=== PATIENT | female | born 1945 | race African-American/Black ===

== ENCOUNTER 2017-02-18 17:16 | Emergency (ER) | payer OTHER ==
[~2017-02-18] VITALS: Ht 160 cm; Wt 81.6 kg
[2017-02-18 18:28] VITALS: BP 134/63
[2017-02-18] MEDS ORDERED: HYDR-971 PO (18:41)
--- NOTE | 2017-02-18 18:41 | PHYS DOC ---
Past Medical History Past Medical History: Hypertension, Other Additional Past Medical Histor: RA Past Surgical History: Other Additional Past Surgical Histo: R. ARM Alcohol Use: Occasionally Drug Use: None Adult General Chief Complaint Chief Complaint: BACK PAIN - NO INJURY [facility] HPI 71-year-old female with no history of chronic back pain now presents to the emergency department complaining of left upper back pain since awakening this morning. Patient has severe tenderness just medial to her left scapula. She says it's tight and hurts with any movement or touch. Patient denies spinal pain and she did not have any fall or trauma recently. Normal bowel bladder habits. Pain is not in her low back. She has normal strength sensation and use of both legs with no incontinence or numbness. Normal gait without difficulty. Patient has no chest pain or shortness of breath. The pain is worse with twisting and moving. No other complaints. Denies productive cough or fever Review of Systems Review of Systems Constitutional: Denies fever or chills [] Eyes: Denies change in visual acuity, redness, or eye pain [] HENT: Denies nasal congestion or sore throat [] Respiratory: Denies cough or shortness of breath [] Cardiovascular: No additional information not addressed in HPI [] GI: Denies abdominal pain, nausea, vomiting, bloody stools or diarrhea [] : Denies dysuria or hematuria [] Musculoskeletal: Denies back pain or joint pain [] Integument: Denies rash or skin lesions [] Neurologic: Denies headache, focal weakness or sensory changes [] Endocrine: Denies polyuria or polydipsia [] Current Medications Current Medications Current Medications Medications (Trade) Dose Ordered Sig/[facility] Start Time Stop Time Status Last Admin Dose Admin Acetaminophen/ Hydrocodone Bitart (Lortab 5/325) 1 tab 1X ONCE 02/18/17 18:45 02/18/17 18:46 DC 02/18/17 18:44 1 TAB Ketorolac Tromethamine (Toradol) 30 mg 1X ONCE 02/18/17 18:45 02/18/17 18:46 DC 02/18/17 18:45 30 MG Orphenadrine Citrate (Norflex) 60 mg 1X ONCE 02/18/17 18:45 02/18/17 18:46 DC 02/18/17 18:45 60 MG Allergies Allergies Allergies Coded Allergies Type Severity Reaction Last Updated Verified No Known Drug Allergies 02/18/17 No Physical Exam Physical Exam Alert 71-year-old female communicative and appropriate. She appears mildly uncomfortable but is in no acute distress. Supple neck no CT or L spinal tenderness. Clear lungs regular rate and rhythm no tachycardia. Positive soft tissue tenderness and spasm left paraspinal medial to the left scapula. She has no skin changes. No erythema or warmth. No bony tenderness fluctuance or crepitus. Constitutional: Well developed, well nourished, no acute distress, non-toxic appearance. [] HENT: Normocephalic, atraumatic, bilateral external ears normal, oropharynx moist, no oral exudates, nose normal. [] Eyes: PERRLA, EOMI, conjunctiva normal, no discharge. [] Neck: Normal range of motion, no tenderness, supple, no stridor. [] Cardiovascular:Heart rate regular rhythm, no murmur [] Lungs & Thorax: Bilateral breath sounds clear to auscultation [] Abdomen: Bowel sounds normal, soft, no tenderness, no masses, no pulsatile masses. [] Skin: Warm, dry, no erythema, no rash. [] Back: As above, no CVA tenderness. [] Extremities: No tenderness, no cyanosis, no clubbing, ROM intact, no edema. [] Neurologic: Alert and oriented X 3, normal motor function, normal sensory function, no focal deficits noted. [] Psychologic: Affect normal, judgement normal, mood normal. [] Current Patient Data Vital Signs Vital Signs Date Time Temp Pulse Resp B/P (MAP) Pulse Ox O2 Delivery O2 Flow Rate FiO2 02/18/17 18:28 88 18 134/63 (86) 95 Room Air 02/18/17 17:28 98.4 98.4 EKG EKG Normal sinus rhythm at [address] and T-wave findings, no STEMI. Interpreted by me[] Radiology/Procedures Radiology/Procedures [] Course & Med Decision Making Course & Med Decision Making Pertinent Labs and Imaging studies reviewed. (See chart for details) Signs and symptoms consistent with musculoskeletal left upper back pain easily reproduced with light palpation with very identifiable spasm. No bony tenderness crepitus fluctuance or spinal tenderness. Patient with normal respiratory rate and pulse ox with no pulmonary symptoms. No spinal or chest x- ray imaging indicated clinically. Patient will be treated with anti-spasmodic anti-inflammatory and analgesic. No further workup or treatment will be indicated patient agrees with outpatient follow-up and strict return precautions given. [] Dragon Disclaimer Dragon Disclaimer This electronic medical record was generated, in whole or in part, using a voice recognition dictation system. Departure Departure Impression: Primary Impression: Strain, dorsal Additional Impression: Spasm of thoracic back muscle Disposition: HOME, SELF-CARE Condition: IMPROVED Referrals: LUKE TREVIZO MD (PCP) Patient Instructions: Back Pain, Adult Additional Instructions: Your history and findings suggest that you have back muscle strain and spasm. Apply ice frequently over the first 2 days from onset of this muscle strain. Take anti-inflammatory medication such as ibuprofen 800 mg every 6 hours. Use your anti-spasmodic medicine as previously prescribed as needed. If he still have persistent breakthrough pain take [place] as prescribed as needed only. Follow-up with your doctor in 1-2 days and return immediately for new severe or worsening symptoms. Scripts Hydrocodone/Apap 5-325 (NORCO 5-325 TABLET) 1 Each Tablet 1 TAB PO PRN Q6HRS Y for PAIN, #14 TAB 0 Refills Prov: GIANNA SAMUEL MD 02/18/17 Problem Qualifiers GIANNA SAMUEL MD Feb 18, 2017 18:41
[2017-02-18] MEDS ORDERED: KETOROLAC 30 MG/ML INJ. IM ONE (18:45)
[2017-02-18] MEDS ORDERED: HYDROcodone/APAP 5/325MG 1 TAB TABLET PO ONE (18:45)
[2017-02-18] MEDS ORDERED: ORPHENADRINE CITRATE 60 MG/2 ML VIAL. IM ONE (18:45)
--- NOTE | 2017-02-19 07:43 | EKG ---
[facility] [address] [place] [id number] Test Date: 2017-02-18 Test Time: 17:30:55 Pat Name: JANY ARSHAD Department: Room: Gender: F Glass Installer: : 1945 Requested By: GIANNA SAMUEL Order Number: [id number] Reading MD: Symone Puente Measurements Intervals [place] Rate: 85 P: 26 OK: 166 QRS: -10 QRSD: 78 T: 23 QT: 362 QTc: 431 Interpretive Statements SINUS RHYTHM NORMAL EKG Electronically Signed On 02-21-2017 15:01:47 CDT by Symone Puente
== END 2017-02-18 19:46 | disposition home or self-care (01) ==
LOC: ER 17:16
DX: S29.012A Strain of muscle and tendon of back wall of thorax, initial encounter (principal); I10 Essential (primary) hypertension; M06.9 Rheumatoid arthritis, unspecified; X58.XXXA Exposure to other specified factors, initial encounter; Y93.89 Activity, other specified; Y99.8 Other external cause status; Y92.89 Other specified places as the place of occurrence of the external cause
CPT/HCPCS: 93005; 96372; 99284; J1885; J2360